=== PATIENT | male | born 1975 | race American Indian/Alaskan Native ===

== ENCOUNTER 2021-10-11 22:21 | Emergency (ER) | payer BC ==
[2021-10-11] MEDS ORDERED: hydrALAZINE 20 MG/1 ML INJ IV ONE (22:37)
--- NOTE | 2021-10-11 22:37 | Emergency Department Report ---
ED General Adult HPI - General Chief complaint: Nosebleed Stated complaint: NOSE BLEED Time Seen by Provider: 10/11/21 22:30 Source: patient Mode of arrival: Ambulatory Limitations: No Limitations - History of Present Illness Initial comments: Patient is 46 years old male with history of hypertension. Patient stated that he is out of his medicine for a week now because his primary care physician retired. Patient presented to the ER complaining of bilateral nose bleed that started this morning on and off. Patient denied any headache, chest pain, s hortness of breath, weakness numbness or tingling sensation. Patient found to have a blood pressure of 213/136. Patient received hydralazine 20 mg IV. - Related Data Allergies Allergy/AdvReac Type Severity Reaction Status Date / Time No Known Allergies Allergy Verified 10/11/21 22:52 ED Review of Systems ROS: Stated complaint: NOSE BLEED Other details as noted in HPI Comment: All other systems reviewed and negative Constitutional: denies: chills, fever ENT: epistaxis Respiratory: denies: cough Cardiovascular: denies: chest pain, palpitations Gastrointestinal: denies: abdominal pain, nausea, vomiting, diarrhea, constipation, hematemesis, melena, hematochezia Musculoskeletal: denies: back pain Neurological: denies: headache, weakness, numbness, paresthesias, confusion ED Past Medical Hx - Past Medical History Previous Medical History?: No - Surgical History Past Surgical History?: No ED Physical Exam - General Limitations: No Limitations General appearance: alert, in no apparent distress - Head Head exam: Present: atraumatic, normocephalic, normal inspection - ENT ENT exam: Present: other (Dried blood in both nostrils. No active bleeding.) - Neck Neck exam: Present: normal inspection, full ROM. Absent: tenderness, meningismus - Respiratory Respiratory exam: Present: normal lung sounds bilaterally - Cardiovascular Cardiovascular Exam: Present: regular rate, normal rhythm, normal heart sounds - GI/Abdominal GI/Abdominal exam: Present: soft, normal bowel sounds. Absent: distended, tenderness, guarding, rebound, rigid, organomegaly, mass, bruit, pulsatile mass, hernia - Extremities Exam Extremities exam: Present: normal inspection, full ROM, normal capillary refill. Absent: tenderness, pedal edema, calf tenderness - Back Exam Back exam: Present: normal inspection, full ROM. Absent: tenderness, CVA tenderness (R), CVA tenderness (L) - Neurological Exam Neurological exam: Present: alert, oriented X3, CN II-XII intact - Psychiatric Psychiatric exam: Present: normal mood - Skin Skin exam: Present: warm, intact, normal color ED Course Vital Signs 10/11/21 10/11/21 10/11/21 22:24 22:50 23:09 Temperature 98.0 F 97.5 F L Pulse Rate 79 84 74 Respiratory 18 18 Rate Blood Pressure 213/136 246/150 Blood Pressure 199/136 [Right] O2 Sat by Pulse 99 99 Oximetry ED Medical Decision Making - Lab Data Result diagrams: 10/11/21 22:43 10/11/21 22:43 - EKG Data -: EKG Interpreted by Mo EKG shows normal: sinus rhythm Rate: normal - EKG Data Interpretation: nonspecific ST-T wave precious - Medical Decision Making Patient is 46 years old male with history of hypertension. Patient stated that he is out of his medicine for a week now because his primary care physician retired. Patient presented to the ER complaining of bilateral nose bleed that started this morning on and off. Patient denied any headache, chest pain, shortness of breath, weakness numbness or tingling sensation. Patient found to have a blood pressure of 213/136. Patient received hydralazine 20 mg IV. Patient received hydralazine 20 mg IV with significant improvement in his blood pressure. No nosebleed observed. Labs reviewed and is unremarkable. Patient given prescription for Norvasc 10 mg and advised to follow-up with his primary doctor in the next 2 to 3 days and to return to the ER if he develop any new symptoms. Critical care attestation.: If time is entered above; I have spent that time in minutes in the direct care of this critically ill patient, excluding procedure time. ED Disposition Clinical Impression: Malignant hypertension, Epistaxis Disposition: HOME / SELF CARE / HOMELESS Is pt being admited?: No Condition: Stable Instructions: Hypertension (ED), Hypertension, Adult, [id number], Nosebleed, [id number] Referrals: PRIMARY CARE, [Primary Care Provider] - 3-5 Days
[2021-10-11 23:06] LABS: Basophils # (Auto) 0.1 K/mm3 (0.0-0.1); Basophils % (Auto) 1.5 % (0.0-1.8); Eosinophils # (Auto) 0.3 K/mm3 (0.0-0.4); Eosinophils % (Auto) 4.8 % (0.0-4.3); Hemoglobin 13.6 gm/dl (11.8-15.2); Lymphocytes # (Auto) 1.8 K/mm3 (1.2-5.4); Lymphocytes % (Auto) 28.7 % (13.4-35.0); Mean Corpuscular HGB Conc 32 % (32-34); Mean Corpuscular Volume 85 fl (84-94); Monocytes # (Auto) 0.5 K/mm3 (0.0-0.8); Monocytes % (Auto) 7.6 % (0.0-7.3); Platelet Count 163 K/mm3 (140-440); Red Blood Count 5.05 M/mm3 (3.65-5.03); Red Cell Distribution Width 13.2 % (13.2-15.2)
[2021-10-11 23:19] LABS: INR 0.97 (0.87-1.13); Partial Thromboplastin Time 35.4 Sec. (24.2-36.6)
[2021-10-11 23:30] LABS: Alanine Aminotransferase 16 units/L (7-56); Albumin 4.9 g/dL (3.9-5); BUN/Creatinine Ratio 17; Blood Urea Nitrogen 19 mg/dL (9-20); Calcium 9.2 mg/dL (8.4-10.2); Hemolysis Index 4
[2021-10-11 23:35] LABS: Bilirubin,Direct < 0.2 mg/dL (0-0.2)
[2021-10-12 05:08] VITALS: BP 178/105
--- NOTE | 2021-10-12 14:40 | Electrocardiograph Report ---
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
== END 2021-10-12 01:15 | disposition home or self-care (01) ==
LOC: ED 22:21
DX: I10 Essential (primary) hypertension (principal); R04.0 Epistaxis
CPT/HCPCS: 36415; 80048; 80076; 85025; 85610; 85730; 93005; 96374; 99283; J0360